=== PATIENT | female | born 1970 | race Caucasian/White ===

== ENCOUNTER 2020-09-06 23:12 | Inpatient (IN) | payer BC ==
[~2020-09-06] VITALS: Ht 160 cm; Wt 112.9 kg
--- NOTE | ~2020-09-06 | EEG ---
[facility] [place] [address] ELECTROENCEPHALOGRAM Name: XIOMY DOMINGO ALL Room #: 213-P [facility] IN M.R.#: [id number] Admission: 09/07/20 Attend Phys: Mary Hernadez MD Discharge: Date of : 72 Report #: [id number] THIS REPORT FOR: //name// DATE OF SERVICE: 09/07/2020 FINDINGS: This patient is being evaluated for the possibility of seizure. EEG was done by placing the electrode by standard 10-20 system of electrode placement. Both referential and sequential montages were used for recording. Background activity is about 10-11 Hz and 20-30 microvolt. Photic stimulation is unremarkable. The patient went to sleep and that is associated with bilateral slowing and vertex sharp waves. Throughout the record, no active epileptiform activity was noticed. IMPRESSION: This patient's EEG is unremarkable. Thank you very much for this referral. By: [id number] Stuart Fuentes MD /nt
--- NOTE | ~2020-09-06 | HC ---
[facility] [address] [place] [address] CONSULTATION Name: XIOMY DOMINGO Room #: 213-P ADM IN M.R.#: [id number] Admission: 09/07/20 Attend Phys: Mary Hernadez MD Discharge: Date of : 72 Report #: [id number] THIS REPORT FOR: cc: Jose Bonilla MD, Steven E. MD Khosla,Stuart Higuera MD ~ DATE OF SERVICE: 09/07/2020 HISTORY OF PRESENT ILLNESS: This 50-year-old female patient who was evaluated by me for any neurological etiology for the patient's symptoms. She gives a history that she was driving. She felt pressure in the middle of the chest and maybe some pain that radiated down to the left upper extremity. There was some paraesthesia like feeling there. She was still able to continue to drive. She went to nearest Emergency Room and was seen there. I do not have the records from there, but I reviewed the chart, it looks like she had a CTA of the head and neck there and that was unremarkable. REVIEW OF SYSTEMS: She said she does have a history of anxiety. She takes medication from that. Otherwise, she does not take any medications. Rest of the 14-point review of system was mostly unremarkable. She had hysterectomy and C-sections in the past. PAST MEDICAL HISTORY: Positive for anxiety. FAMILY HISTORY: Positive for diabetes. SOCIAL HISTORY: She denies the use of alcohol or tobacco. PHYSICAL EXAMINATION: Indicates she is alert. She is responsive. She is able to follow simple and complex command. Her speech, concentration, fund of knowledge and memory is unremarkable. Cranial nerve examination 2-12 is unremarkable. Neuromuscular examinations appear unremarkable. Pupils are symmetrical. There is no carotid bruit. There is no meningeal sign. Cardiac examination is unremarkable. Obesity is positive. She does not have any problem with hearing or vision. Blood pressure is 118/71, respirations 18, pulse is 82, temperature is 98. LABORATORY DATA: White count is 9.4. She apparently had a CTA of the head in [facility] and she had an MRI of the brain and carotid Doppler. They were all unremarkable. IMPRESSION: It is unlikely that there is any neurological etiology for the patient's symptoms. I will get an EEG done just to complete the workup, but I do not think the patient has neurological etiology. I talked to Dr. Singh and my recommendation is to work her up for non-neurological causes which may [facility] [address] [place] [address] CONSULTATION Name: XIOMY DOMINGO ALL Room #: 213-P ADM IN M.R.#: [id number] Admission: 09/07/20 Attend Phys: Mary Hernadez MD Discharge: Date of : 72 Report #: [id number] include some chest pathology, spine pathology, etc. I will defer that workup to them. Otherwise, I do not have anything specific to add and I will sign off. Thank you very much for this referral and if you have any questions, please feel free to contact me. By: [id number] Stuart Fuentes MD /joy
[2020-09-07] VITALS (7 sets, daily range): BP systolic 113–124; BP diastolic 71–90
--- NOTE | 2020-09-07 01:16 | NUR ---
ASSESSMENT: PT REMAIN ALERT AND ORIENT TIMES FOUR. UP AD IVAN TO BR WITH STEADY GAIT. PT DENIES DIZZINESS, SOB, TINGLING AND CHEST TIGHTNESS. PT STATE THAT ALL OF HER SYMPTOMS THAT SHE EXPERIENCED EARLIER HAVE ALL SUBSIDED. VISION PROPER. NO ISSUES WITH BOWEL NOR BLADDER. VSS, AFEBRILE. COVID NEGATIVE PER [facility]. SR PER MONITOR. NO SKIN ISSUES. 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 AWAITING ANY NEW ORDERS. WILL CONTINUE TO MONITOR.
[2020-09-07 03:47] LABS: HEMATOCRIT 38.5 % (37.0-47.0); HEMOGLOBIN 12.6 gm/dL (12.0-15.0); MCH 28.2 pg (26.0-34.0); MCHC 32.6 g/dL (28.0-37.0); MCV 86.5 fL (80.0-100.0); RBC 4.45 mil/uL (4.20-5.00); RDW 14.5 % (10.5-14.5); WBC 9.4 thou/uL (4.0-11.0)
[2020-09-07 04:00] LABS: CREATININE 0.9 mg/dL (0.6-1.0); POTASSIUM 3.5 mmol/L (3.5-5.1)
--- NOTE | 2020-09-07 10:08 | NUR ---
CHART REVIEWED. PER NSG NOTES, Pt IS UP AD IVAN WITH A STEADY GAIT. SPOKE TO Pt AND HER NURSE, MACHO, WHO STATE THE SAME. Pt REPORTS THAT SHE IS GETTING AROUND SAFELY WITH NO BALANCE DEFICITS NOR ANY STRENGTH DEFICITS IN BILAT LE'S. NIH=0. WILL D/C D/T Pt'S REFUSAL AND Pt NOT REQUIRING ANY SKILLED P.T. AT THIS TIME.
--- NOTE | 2020-09-07 16:27 | NUR ---
PT CARE ASSUMED AT 0700. ASSESSMENTS CHARTED. MEDICATIONS CHARTED. RAC IV. TOILET. SINUS RHYTHM. CT HEAD NEGATIVE, CXR NEGATIVE, CTA HEAD NEGATIVE, MRI HEAD NEGATIVE. UP AD IVAN. PT TO BE DISCHARGED HOME. DISCHARGE PAPERWORK SIGNED. TELEMETRY D/C'D. IV D/C'D.
--- NOTE | 2020-09-07 16:47 | 2DMMODE ---
[facility] [address] [place] [address] 2 D/M-MODE ECHOCARDIOGRAM Name: XIOMY DOMINGO ALL Room #: 213-P [facility] IN M.R.#: [id number] Admission: 09/07/20 Attend Phys: Mary Hernadez MD Discharge: 09/07/20 Date of : 72 Report #: [id number] THIS REPORT FOR: cc: Jose Bonilla MD, Steven E. MD Couchonnal, Luis F. MD ~ APPROVED REPORT Study performed: 09/07/2020 11:59:10 EXAM: Comprehensive 2D, Doppler, and color-flow Echocardiogram Patient Location: Bedside Room #: 213 Status: on-call BSA: 2.12 HR: 74 bpm BP: 118/71 mmHg Rhythm: NSR Other Information Study Quality: Adequate Indications CVA/TIA Chest Tightness Echo Enhancing Agent Indication: Rule out Shunt Agent(s) / Amount(s) Used: Agitated Saline 14 cc 2D Dimensions IVSd: 10.26 (7-11mm) LVOT Diam: 20.00 (18-24mm) LVDd: 44.18 mm PWd: 9.94 (7-11mm) Ascending Ao: 31.84 (22-36mm) LVDs: 30.89 (25-40mm) Aortic Root: 30.55 mm LV Single Plane 4CH: 61.87 % LV Single Plane 2CH: 66.44 % Biplane EF: 65.5 % Volumes Left Atrial Volume (Systole) Single Plane 4CH: 33.15 mL Single Plane 2CH: 51.19 mL LA ESV Index: 22.00 mL/m2 [facility] [address] [address] 2 D/M-MODE ECHOCARDIOGRAM Name: XIOMY DOMINGO Room #: 213-P [facility] IN M.R.#: [id number] Admission: 09/07/20 Attend Phys: Raffi Thomason Discharge: 09/07/20 Date of : 72 Report #: [id number] Aortic Valve AoV Peak Sanjeev.: 1.17 m/s AO Peak Gr.: 5.50 mmHg LVOT Max P.89 mmHg LVOT Max V: 0.99 m/s DARCY Vmax: 2.55 cm2 Mitral Valve E/A Ratio: 1.2 MV Decel. Time: 222.26 ms MV E Max Sanjeev.: 0.82 m/s MV A Sanjeev.: 0.68 m/s MV PHT: 64.45 ms IVRT: 69.20 ms TDI E/Lateral E': 8.20 E/Medial E': 10.25 Medial E' Sanjeev.: 0.08 m/s Lateral E' Sanjeev.: 0.10 m/s Pulmonary Valve PV Peak Sanjeev.: 0.81 m/s PV Peak Gr.: 2.63 mmHg Pulmonary Vein P Vein S: 0.56 m/s P Vein A: 0.22 m/s P Vein D: 0.51 m/s P Vein A Dur.: 110.7 msec P Vein S/D Ratio: 1.10 Tricuspid Valve RAP Estimate: 7.00 mmHg Left Ventricle The left ventricle is normal size. There is normal LV segmental wall motion. There is normal left ventricular wall thickness. Left ventricular systolic function is normal. The left ventricular ejection fraction is within the normal range. LVEF is 60-65%. Moderate diastolic dysfunction is present (pseudonormal filling). Right Ventricle The right ventricle is normal size. The right ventricular systolic function is normal. Atria The left atrium size is normal. Injection of bubbles documented no interatrial shunt. The right atrium size is normal. [address] [address] 2 D/M-MODE ECHOCARDIOGRAM [facility] #: [facility]-P [facility] IN M.R.#: [id number] Admission: 09/07/20 Attend Phys: Raffi Thomason Discharge: 09/07/20 Date of : 72 Report #: [id number] Aortic Valve The aortic valve is normal in structure. No aortic regurgitation is present. There is no aortic valvular stenosis. Mitral Valve The mitral valve is normal in structure. Trace mitral regurgitation. No evidence of mitral valve stenosis. Tricuspid Valve The tricuspid valve is normal in structure. There is no tricuspid valve regurgitation noted. Pulmonic Valve The pulmonary valve is normal in structure. There is no pulmonic valvular regurgitation. Great Vessels The aortic root is normal in size. The ascending aorta is normal in size. IVC is normal in size and collapses >50% with inspiration. Pericardium There is no pericardial effusion. <Conclusion> The left ventricle is normal size. There is normal left ventricular wall thickness. Left ventricular systolic function is normal. The left ventricular ejection fraction is within the normal range. LVEF is 60-65%. The right ventricle is normal size. The right ventricular systolic function is normal. Injection of bubbles documented no interatrial shunt. The aortic valve is normal in structure. The mitral valve is normal in structure. There is no pericardial effusion. <ELECTRONICALLY SIGNED> By: Sharif Gonsales MD 09/07/201646 [id number] Sharif Gonsales MD /INF
[2020-09-08 05:36] LABS: GLYCOHEMOGLOBIN (HGB A1C) 5.6 % (4.8-5.6)
== END 2020-09-07 15:34 | disposition home or self-care (01) | DRG 69 ==
LOC: 2N 23:12
PROVIDERS: Nurse Practitioner Family; ADMIT Hospitalist; ATTEND Hospitalist
DX: G45.9 Transient cerebral ischemic attack, unspecified (principal); Z68.41 Body mass index [BMI] 40.0-44.9, adult; F41.9 Anxiety disorder, unspecified; R20.2 Paresthesia of skin; E66.9 Obesity, unspecified; Z98.891 History of uterine scar from previous surgery; Z90.49 Acquired absence of other specified parts of digestive tract; Z90.710 Acquired absence of both cervix and uterus
CPT/HCPCS: 10081